=== PATIENT | male | born 1950 | race Asian ===

== ENCOUNTER 2016-07-25 05:51 | Day surgery (SDC) | payer MEDICARE, OTHER ==
[~2016-07-25] VITALS: Ht 172.7 cm; Wt 67.3 kg
[~2016-07-25 05:51] MED LIST: IPRAHFA IH; LEVO500 PO; MOME17N NASAL; MONT10TA21 PO; PRED20 PO; PROME5L PO; SUCR1TAB PO
[2016-07-25] MEDS ORDERED: SODIUM CHLORIDE 0.9% 1,000 ML IV ONE ×2 (06:05→06:30)
[2016-07-25] MEDS ORDERED: P-EP-31 PO (06:35)
[2016-07-25] MEDS ORDERED: ALEN35TA32 PO (06:37)
[2016-07-25] MEDS ORDERED: ALBU8.5H IH (06:37)
[2016-07-25 07:05] LABS: GLUCOSE,POINT OF CARE 103 MG/DL (70-110)
[2016-07-25] MEDS ORDERED: FentaNYL CITRATE-PF 100 MCG/2 ML VIAL ONE (07:54)
[2016-07-25] MEDS ORDERED: MIDAZOLAM HCL 2 MG/2 ML VIAL ONE (07:54)
[2016-07-25] MEDS ORDERED: MethylPREDNISolone SOD SUCC 125 MG/2 ML VIAL IVP ONE (08:30)
[2016-07-25] MEDS ORDERED: MethylPREDNISolone SOD SUCC 125 MG/2 ML VIAL ONE (08:50)
[2016-07-25] MEDS ORDERED: LIDOCAINE HCL 2% 30 ML JELLY TP ONE (16:43)
[2016-07-25] MEDS ORDERED: BENZOCAINE 20% 50 MCG/SPRAY 57 GM TP ONE (16:43)
[2016-07-25] MEDS ORDERED: LIDOCAINE HCL 4% 50 ML SOLUTION TP ONE (16:43)
[2016-07-25] MEDS ORDERED: OXYGEN THERAPY IH SCH (20:00)
== END 2016-07-25 09:50 | disposition home or self-care (01) ==
LOC: SURGERY 05:51
PROVIDERS: ATTEND Internal Medicine Critical Care Medicine
DX: J38.4 Edema of larynx (principal); B37.0 Candidal stomatitis
CPT/HCPCS: 31623; 31624; 71010; 82962; 87015; 87070; 87101; 87205; 87220; 93005; J2250; J2930; J3010; J7030; 88108; 88312

== ENCOUNTER 2023-10-09 06:36 | Day surgery (SDC) | payer OTHER ==
[~2023-10-09] VITALS: Ht 170.2 cm; Wt 66.4 kg
[~2023-10-09 06:36] MED LIST changes: +ALBU8.5H8 IH; +ALEN35TA41 PO; -IPRAHFA IH; +LEVO-72 PO; -LEVO500 PO; +MONT-35 PO; -MONT10TA21 PO; +PRED-554 PO; -PRED20 PO; +PROM5L PO; -PROME5L PO; +SODIUM CHLORIDE 0.9% 1,000 ML ONE; -SUCR1TAB PO; +SUCR1TAB2 PO; +TRIP1TAB14 PO
[2023-10-09] MEDS: SODIUM CHLORIDE 0.9% 1,000 ML IV ONE (07:49)
[2023-10-09 08:06] LABS: GLUCOMETER DEV NAME(LOC) SDS.; GLUCOSE,POINT OF CARE 81 MG/DL (70-110)
[2023-10-09] MEDS ORDERED: MIDAZOLAM HCL 2 MG/2 ML VIAL ONE (08:31)
[2023-10-09] MEDS ORDERED: FentaNYL CITRATE PF 100 MCG/2 ML VIAL ONE (08:31)
[2023-10-09] MEDS ORDERED: MethylPREDNISolone SOD SUCC 125 MG/2 ML VIAL ONE (09:14)
[2023-10-09 09:38] VITALS: PULSE 63; RESP 11; O2SAT 99
[2023-10-09] MEDS: MethylPREDNISolone SOD SUCC 125 MG/2 ML VIAL IVP ONE (10:11)
== END 2023-10-09 12:10 | disposition home or self-care (01) ==
LOC: SURGERY 06:36
PROVIDERS: ATTEND Internal Medicine Critical Care Medicine
DX: R05.3 Chronic cough (principal); J38.4 Edema of larynx; B37.0 Candidal stomatitis; R06.2 Wheezing; R04.2 Hemoptysis; J81.1 Chronic pulmonary edema; J84.10 Pulmonary fibrosis, unspecified; E11.9 Type 2 diabetes mellitus without complications; F32.A Depression, unspecified; E78.00 Pure hypercholesterolemia, unspecified; J44.9 Chronic obstructive pulmonary disease, unspecified; F17.210 Nicotine dependence, cigarettes, uncomplicated; Z79.82 Long term (current) use of aspirin; Z79.899 Other long term (current) drug therapy
CPT/HCPCS: 31623; 82962; 87206; 87101; 87220; 87070; 31624; 71045; 87015; J3010; J2250; J2919; J7030